=== PATIENT | male | born 1980 | race Caucasian/White ===

== ENCOUNTER 2024-03-11 14:18 | Emergency (ER) | payer BC, SELFPAY ==
[2024-03-11] VITALS (13 sets, daily range): BP systolic 131–162; BP diastolic 78–107; PULSE 62–109; RESP 16–34; TEMP 36.6–37; O2SAT 90–98; BMI 35.9
--- NOTE | 2024-03-11 14:17 | ECG_ITS ---
APPROVED REPORT Exam: Resting ECG HR:99 bpm ECG Measurements Heart Rate 99 AXES [place] 155 P 53 QRSd 93 QRS 33 QT 349 T 14 QTc 405 Conclusion SINUS RHYTHM NORMAL ECG UNCONFIRMED REPORT Electronically signed by : Dewayne Huynh, 03/11/2024 16:13:11
--- NOTE | 2024-03-11 14:49 | ED_ITS ---
<Statement entered by Timoteo Huynh MD - 03/14/24 21:34> I was consulted by the SHER, and we discussed the complexity of the problems being addressed. I approved the treatment and management plan for this patient's care in the emergency department, thus performing a substantive portion of the medical decision making. Timoteo Huynh MD, HAFSA, FACEP Discharge Plan Disposition Patient Disposition: Home, Self-Care Condition: Good Prescriptions Prescriptions: New azithromycin [Zithromax] 250 mg tablet 250 mg PO DAILY 4 Days Qty: 4 0RF Rx Instructions: start on day 2 of therapy amoxicillin-pot clavulanate 875-125 mg tablet 1 tab PO BID 7 Days Qty: 14 0RF Referrals Follow up/Referrals: Provider,MD Louann [Primary Care Provider] - See instructions Clinical Impressions Clinical Impression: Pneumonia Print Language Print Language: Hungarian Discharge ED Provider: Gagan Wheeler General Chief Complaint: Chest Pain Stated Complaint: chest pain Time Seen by Provider: 03/11/24 14:47 Mode of Arrival: Ambulatory Source of Information: Patient Limitations: No Limitations Description of Symptoms (Recalled from ER Triage Doc. by RN): pt c/o sharp, 7/10 L chest pain that radiates to his sternal chest. pt states this has been ongoing since 03/08 but became increasingly worse today. pt reports a productive cough that is red and blood appearing. pt reports drinking wine on 03/07 for new when he choked. He reports he thinks he have have aspirated the wine. pt appears short of air and is tachypnic. History of Present Illness HPI narrative: Patient is a 43-year-old with no past medical history presenting for 2 days of hemoptysis and left-sided chest pain. Patient said that his chest pain started after he vomited multiple times on [place] after drinking red wine. He has had intermittent hemoptysis since then and the chest pain has been fairly constant. Additionally patient said that he has not been able to eat over the last couple days due to having no appetite. Patient said that the hemoptysis gets better as the day goes on and by the end of the day he has no blood in his sputum. Patient has had no fevers, chills and has not taken any medications to help. At this time he is not nauseous, vomiting, abdominal pain or diarrhea. Patient has a family history of blood clots but has never been worked up for a coagulation disorder. Related Data Previous Rx's ?Medication ?Instructions ?Recorded amoxicillin 875 mg-potassium 1 tab PO BID 7 days #14 tabs 03/11/24 clavulanate 125 mg tablet azithromycin 250 mg tablet 250 mg PO DAILY 4 days #4 tabs 03/11/24 (Zithromax) Allergies Allergy/AdvReac Type Severity Reaction Status Date / Time No Known Allergies Allergy Verified 03/11/24 14:[address] [facility] Disclaimer: The information contained in this section may have been updated after the patient was seen, as this information can be updated by other users. Social History (Updated 01/15/22 @ 15:28 by Luisa Garcia) Smoking Status: Current every day smoker second hand exposure: No alcohol intake: never substance use type: denies use current occupational status: employed Travel in the last 8 weeks: None marital status: caffeine: Yes Have you lived/traveled outside [place] in past 30 days?: No Contact w/someone who lives/traveled outside US past 30 days?: No Exposure to someone with infectious disease in past 14 days?: No Do you have a fever (greater than 100.4 F or 38 C)?: No Have you tested positive for COVID-19: No Exposed to someone with COVID-19 in past 14 days?: No Do you have a sore throat?: No Do you have a cough?: No Do you have any weakness?: No Do you have any diarrhea?: No Are you experiencing any unusual bleeding?: No Do you have any muscle aches/pain?: No Do you have any abdominal pain?: No Are you experiencing loss of taste or smell?: No Other Medical History Have you received the Flu Vaccine for this season: No Have you received the Pneumonia Vaccine: No ROS Obtained: Yes All systems reviewed & no additional complaints except as documented Physical Exam General General appearance: alert Eye Eye exam: Present normal appearance ENT ENT exam: Present normal exam, normal oropharynx and mucous membranes moist Neck Neck exam: Present normal inspection Chest Chest inspection: Present normal inspection and other (Tenderness to palpation of left chest wall without obvious crepitus) Respiratory Respiratory exam: Present normal lung sounds bilaterally; Absent respiratory distress, wheezes, stridor or accessory muscle use Cardiovascular Cardiovascular exam: Present tachycardia Abdominal Exam Abdominal exam: Present soft; Absent distention, tenderness or guarding Neurological Exam Neurological exam: Present alert and oriented X3 HEART Score HEART Score HEART Score assessment performed?: Yes History (anamnesis): Slightly suspicious ECG: Normal Age: <45 years Risk factors: No known risk factors Troponin: </= normal limit HEART Score: 0 Critical Care Critical Care Time Critical Care Time: No Medical Decision Making Jon Inquiry Pt receiving controlled substance: No Vital Signs Vital Signs: 03/11/24 14:19 03/11/24 14:20 03/11/24 14:45 Temperature 98.6 F Temperature Source Oral Pulse Rate 97 H 106 H Pulse Rate [Left] 94 H Respiratory Rate 33 H 27 H Blood Pressure 151/92 H Blood Pressure [Right Arm] 162/107 H Blood Pressure Mean [Right Arm] 125 Blood Pressure Source Blood Pressure Source [Right Arm] Automatic Cuff Blood Pressure Position Blood Pressure Position [Right Arm] Sitting 02 Sat by Pulse Oximetry 98 96 90 L Oxygen Delivery Method Room Air 03/11/24 15:00 03/11/24 15:30 03/11/24 16:00 Temperature Temperature Source Pulse Rate 109 H 96 H 97 H Pulse Rate [Left] Respiratory Rate 32 H 21 28 H Blood Pressure 141/87 H 152/96 H 138/84 Blood Pressure [Right Arm] Blood Pressure Mean [Right Arm] Blood Pressure Source Blood Pressure Source [Right Arm] Blood Pressure Position Blood Pressure Position [Right Arm] 02 Sat by Pulse Oximetry 92 L 92 L 93 L Oxygen Delivery Method Room Air Room Air 03/11/24 16:30 03/11/24 17:00 03/11/24 17:30 Temperature Temperature Source Pulse Rate 105 H 105 H 94 H Pulse Rate [Left] Respiratory Rate 34 H 25 H 22 Blood Pressure 131/84 145/92 H 153/88 H Blood Pressure [Right Arm] Blood Pressure Mean [Right Arm] Blood Pressure Source Blood Pressure Source [Right Arm] Blood Pressure Position Blood Pressure Position [Right Arm] 02 Sat by Pulse Oximetry 93 L 95 94 L Oxygen Delivery Method Room Air Room Air Room Air 03/11/24 18:00 03/11/24 18:30 03/11/24 19:00 Temperature Temperature Source Pulse Rate 67 62 Pulse Rate [Left] Respiratory Rate 24 27 H 25 H Blood Pressure 132/78 134/87 149/99 H Blood Pressure [Right Arm] Blood Pressure Mean [Right Arm] Blood Pressure Source Blood Pressure Source [Right Arm] Blood Pressure Position Blood Pressure Position [Right Arm] 02 Sat by Pulse Oximetry 94 L 94 L Oxygen Delivery Method Room Air Room Air 03/11/24 19:26 Temperature 97.9 F Temperature Source Oral Pulse Rate 109 H Pulse Rate [Left] Respiratory Rate 16 Blood Pressure 149/99 H Blood Pressure [Right Arm] Blood Pressure Mean [Right Arm] Blood Pressure Source Automatic Cuff Blood Pressure Source [Right Arm] Blood Pressure Position Supine Blood Pressure Position [Right Arm] 02 Sat by Pulse Oximetry Oxygen Delivery Method Room Air Lab Data Labs: Lab Results 03/11/24 14:20: WBC 26.7 H*, RBC 6.06, Hgb 17.1, Hct 50.9, MCV 84.0, MCH 28.2, MCHC 33.6, RDW 12.5, Plt Count 253, MPV 10.7 H, Neut % (Auto) 84.8 H, Lymph % (Auto) 7.9 L, Bath % (Auto) 5.8, Eos % (Auto) 0.0 L, Baso % (Auto) 0.6, Neut # (Auto) 22.6 H, Lymph # (Auto) 2.1, Bath # (Auto) 1.5 H, Eos # (Auto) 0.0, Baso # (Auto) 0.2, Total Counted 100, Neutrophils % (Manual) 86 H, Lymphocytes % (Manual) 8 L, Monocytes % (Manual) 6, Platelet Estimate Normal, RBC Morphology Normal, PT 12.2, INR 1.10, APTT 31.9 H, Sodium 140, Potassium 4.1, Chloride 98, Carbon Dioxide 27, Anion Gap 19.1 H, BUN 11, Creatinine 1.30 H, Estimated Creat Clear 120, Estimated GFR 61, Est GFR ( Amer) 74, Glucose 170 H, Calcium 9.6, Total Bilirubin 1.6 H, AST 39, ALT 36, Alkaline Phosphatase 116, Troponin I < 0.01, Total Protein 8.9 H, Albumin 4.8, Globulin 4.1 H, Albumin/Globulin Ratio 1.2 03/11/24 14:30: HIV Ag/Ab Combo Qual Negative 03/11/24 15:15: VBG pH 7.39, VBG pCO2 38.2, VBG pO2 32.4, VBG HCO3 22.7 L, VBG Total CO2 23.9, VBG O2 Saturation 69.8, VBG Base Excess -2.2, VBG Lactic Acid 2.4 H 03/11/24 16:03: SARS-CoV-2 (PCR) Not detected, Influenza A Untype (PCR) Not detected, Influenza Type B (PCR) Not detected 03/11/24 14:20 03/11/24 14:20 Response Orders (Tests/Meds): ED MEDICATIONS Discontinued Medications Generic Name Dose Route Start Last Admin Trade Name Freq PRN Reason Stop Dose Admin Hydromorphone HCl 0.5 mg 03/11/24 14:59 03/11/24 15:17 Hydromorphone 4 Mg/Ml Syringe IV 03/11/24 15:00 0.5 mg ONCE ONE Administration Lactated Ringer's 1,000 mls @ 999 mls/hr 03/11/24 14:59 03/11/24 15:17 Lactated Ringer's 1000 Ml Bag IV 03/11/24 15:59 999 mls/hr .Q1H1M ONE Administration Lactated Ringer's 1,000 mls @ 999 mls/hr 03/11/24 16:03 03/11/24 17:02 Lactated Ringer's 1000 Ml Bag IV 03/11/24 17:03 999 mls/hr .Q1H1M ONE Administration Ceftriaxone Sodium 2 gm/ 100 mls @ 200 mls/hr 03/11/24 17:15 03/11/24 17:47 Sodium Chloride IV 03/21/24 17:14 200 mls/hr Q24H ALISTAIR Administration Azithromycin 500 mg/ Sodium 250 mls @ 250 mls/hr 03/11/24 17:15 03/11/24 17:55 Chloride IV 03/21/24 17:14 250 mls/hr Q24H ALISTAIR Administration Iopamidol 70 ml 03/11/24 15:48 03/11/24 15:49 Iopamidol-370 (76%);100ml Bottle IV 03/11/24 15:49 70 ml ONCE ONE Administration Ondansetron HCl 4 mg 03/11/24 14:59 03/11/24 15:18 Ondansetron 4mg/2ml Vial IV 03/11/24 15:00 4 mg ONCE ONE Administration Pantoprazole Sodium 40 mg 03/11/24 14:59 03/11/24 15:18 Pantoprazole 40mg Vial IV 03/11/24 15:00 40 mg ONCE ONE Administration Sodium Chloride 10 ml 03/11/24 14:59 03/11/24 15:18 Sodium Chloride 0.9% 10ml Vial IV 04/10/24 14:58 10 ml NEEDED PRN Administration dilute protonix Sodium Chloride 50 ml 03/11/24 15:48 03/11/24 15:50 0.9 % Sodium Chloride 50 Ml Vial IV 03/11/24 15:49 50 ml ONCE ONE Administration Sodium Chloride 10 ml 03/11/24 15:48 03/11/24 15:50 Sodium Chloride 0.9% 10ml Syr (Rad Only) IV 03/11/24 15:49 10 ml ONCE ONE Administration ORDERS Category Date Time Status CT angio chest PE protocol Stat Cat Scan 03/11/24 14:59 Completed XR chest portable Stat Exams 03/11/24 15:00 Completed Activated Partial Thrombo Time Stat Lab 03/11/24 14:20 Completed Complete Blood Count Auto Diff Stat Lab 03/11/24 14:20 Completed Comprehensive Metabolic Panel Stat Lab 03/11/24 14:20 Completed HIV Combo Stat Lab 03/11/24 14:30 Completed Hep C Ab with Reflex to RNA Stat Lab 03/11/24 14:30 Received Prothrombin Time INR Stat Lab 03/11/24 14:20 Completed Rapid PCR Covid and Flu A/B Stat Lab 03/11/24 16:03 Completed Troponin I Stat Lab 03/11/24 14:20 Completed Blood Culture Stat Micro 03/11/24 16:02 Received Venous Blood Gas Stat RT 03/11/24 15:15 Completed MDM Narrative Medical Decision Narrative: In summary, this 43-year-old male presents to the emergency department today with hemoptysis and chest pain. On initial evaluation patient is mildly tachycardic and uncomfortable but otherwise hemodynamically stable. He is on room air and has reproducible pain of his left chest wall. I have concern for pneumomediastinum or Deysi-Mallory tear causing this chest pain due to it starting after forceful vomiting. Differential diagnosis includes but is not limited to pneumomediastinum, Deysi Mallory tear, pulmonary embolism, pneumonia, bronchitis. Based on these concerns, I ordered labs, chest x-ray, CT. ECG personally interpreted demonstrates normal sinus rhythm, no acute ST elevation, intervals within normal limits. Patient received azithromycin and ceftriaxone for treatment. Labs personally reviewed demonstrate leukocytosis, elevated lactate, mildly elevated creatinine. XR personally interpreted demonstrates right-sided pneumonia. CT imaging personally interpreted demonstrate no pulmonary embolism, concern for right-sided pneumonia. On reassessment patient's heart rate significantly improved, symptoms have improved and he is feeling much better. He is on room air no acute respiratory distress. Due to initial tachycardia, tachypnea and leukocytosis I offered patient admission and patient said that he would like to not be admitted regardless of all of these. I discussed the risk and benefits with him and he was agreeable to IV antibiotics and then starting p.o. antibiotics tomorrow. Patient was given strict return precautions, all questions answered, patient discharged in stable condition.. Of note, social determinants of health include poor health literacy.
--- NOTE | 2024-03-11 14:59 | CT_ITS ---
PROCEDURE INFORMATION: Exam: CTA Chest With Contrast Exam date and time: 03/11/2024 3:49 PM Age: 43 years old Clinical indication: Other: Hemoptysis, chest pain TECHNIQUE: Imaging protocol: Computed tomographic angiography of the chest with contrast. Exam focused on the arteries. 3D rendering (Not supervised by radiologist): MIP and/or 3D reconstructed images were created by the technologist. Radiation optimization: All CT scans at this facility use at least one of these dose optimization techniques: automated exposure control; mA and/or kV adjustment per patient size (includes targeted exams where dose is matched to clinical indication); or iterative reconstruction. Contrast material: ISOVUE 370; Contrast volume: 70 ml; Contrast route: INTRAVENOUS (IV); COMPARISON: CR XR CHEST PORTABLE 03/11/2024 3:33 PM FINDINGS: Pulmonary arteries: No evidence of pulmonary embolus to the segmental level. Aorta: No aneurysm of the aorta. No dissection of the aorta. Lungs: Consolidation in the lingula and right lower lobe may represent multifocal pneumonia.. Pleural spaces: Unremarkable. No pneumothorax. No pleural effusion. Heart: Unremarkable. No cardiomegaly. No pericardial effusion. Mediastinal space: No pneumomediastinum identified. Lymph nodes: Calcified subcarinal nodes and calcified granuloma in the left lower lobe consistent with prior granulomatous disease. Pathologic node along the right paratracheal region 18 x 14 mm. Kidneys: 3.9 cm simple cyst left kidney. . No follow-up imaging recommended . Bones/joints: One cm sclerotic density noted in the left humeral head compatible with bone island (enostosis) in patient without history of neoplastic disease. Nuclear medicine bone scan may be useful for further evaluation if clinically indicated. Soft tissues: Unremarkable. IMPRESSION: 1. No evidence of pulmonary embolus to the segmental level. 2. No aneurysm of the aorta. 3. No dissection of the aorta. 4. Consolidation in the lingula and right lower lobe may represent multifocal pneumonia.. COMMENTS: Consistent with the [employer]'s Incidental Findings Committee white paper (J Am [place] [employer]iol 2018): Any incidental renal lesion less than 1 cm or classified as too small to characterize, or any incidental cystic renal lesion characterized as simple-appearing, is likely benign. No follow-up imaging is recommended for these lesions per consensus recommendations based on imaging criteria.
--- NOTE | 2024-03-11 15:00 | XR_ITS ---
PROCEDURE INFORMATION: Exam: XR Chest Exam date and time: 03/11/2024 3:33 PM Age: 43 years old Clinical indication: Other: Cp, concern for pneumomediastinum TECHNIQUE: Imaging protocol: Radiologic exam of the chest. Views: 1 view. COMPARISON: No relevant prior studies available. FINDINGS: Lungs: Opacity in the lingula and lower lobes may represent pneumonia.. Pleural spaces: Unremarkable. No pleural effusion. No pneumothorax. Heart/Mediastinum: No pneumomediastinum on the CT chest. Bones/joints: Unremarkable. IMPRESSION: 1. Opacity in the lingula and lower lobes may represent pneumonia.. Please refer to the CTA chest 2. No pneumomediastinum on the CT chest.
[2024-03-11 15:17] LABS: Albumin Level 4.8 g/dl (3.5-5.0); Basophils # 0.2 K/mm3 (0-0.2); Basophils % 0.6 % (0.1-2.0); Chloride 98 mmol/L (98-107); Hematocrit 50.9 % (42.0-52.0); Hemoglobin 17.1 g/dL (14.1-18.0); Lymphocytes # 2.1 K/mm3 (0.7-4.5); Lymphocytes % 7.9 % (10-50); Mean Corpuscular HGB Conc 33.6 g/dL (31.8-35.4); Mean Corpuscular Hemoglobin 28.2 pg (27.0-31.2); Mean Platelet Volume 10.7 fl (7.4-10.4); Monocytes # 1.5 K/mm3 (0.1-1.0); Monocytes % 5.8 % (1.7-9.3); Neutrophils # 22.6 K/mm3 (1.8-7.8); Neutrophils % 84.8 % (37.0-80.0); Platelet Count 253 K/mm3 (142-424); Potassium 4.1 mmoL/L (3.5-5.1); Red Blood Count 6.06 M/mm3 (4.60-6.20); Red Cell Distribution Width 12.5 % (11.5-17.5); Sodium 140 mmol/L (136-145); White Blood Count 26.7 K/mm3 (4.8-10.8)
[2024-03-11] MEDS: LACTATED RINGERS 1000ML 1,000 ML 999 ML IV ×2 (15:17→17:02)
[2024-03-11] MEDS: PANTOPRAZOLE 40MG VIAL 40 MG IV (15:18)
[2024-03-11] MEDS: SODIUM CHLORIDE 0.9% 10ML VIAL 10 ML IV (15:18)
[2024-03-11] MEDS: ONDANSETRON 4MG/2ML VIAL 4 MG IV (15:18)
[2024-03-11 15:20] LABS: Alanine Aminotransferase 36 U/L (12-78); Albumin/Globulin Ratio 1.2 (1.1-1.8); Alkaline Phosphatase 116 U/L (38-126); Anion Gap 19.1 mEq/L (5-15); Aspartate Amino Transferase 39 U/L (17-59); Bilirubin,Total 1.6 mg/dl (0.2-1.3); Blood Urea Nitrogen 11 mg/dl (9-20); Carbon Dioxide 27 mmol/L (22.0-30.0); Creatinine Clearance Estimated 120 mL/min (50-200); Estimated Glomerular Filt Rate 61 ml/min (>60); GFR (African American) 74 ML/MIN (>60); Globulin 4.1 g/dL (1.3-3.2); Glucose 170 mg/dl (74-100); Total Protein,Serum 8.9 g/dl (6.3-8.2)
[2024-03-11 15:21] LABS: Calcium 9.6 mg/dl (8.4-10.2)
[2024-03-11 15:29] LABS: MANUAL DIFFERENTIAL MANUAL DIFFERENTIAL (MANUAL DIFF)
[2024-03-11 15:36] LABS: VBG Base Excess -2.2 mmol/L (-2.4-2.3); VBG HCO3 22.7 mmol/L (23-30); VBG Oxygen Saturation 69.8 % (50-70); VBG PCO2 38.2 mmol/L (35-51); VBG PH 7.39 mmol/L (7.31-7.41); VBG PO2 32.4 mmol/L (28-40); VBG Total CO2 23.9 mmol/L (23-27)
[2024-03-11 15:37] LABS: Lactate Venous 2.4 mmol/L (0.4-2.0)
[2024-03-11 15:39] LABS: Troponin I < 0.01 ng/ml (0.00-0.034)
[2024-03-11] MEDS: IOPAMIDOL-370 (76%);100ML BOTTLE 70 ML IV (15:49)
[2024-03-11] MEDS: 0.9 % SODIUM CHLORIDE 50 ML VIAL IV (15:50)
[2024-03-11] MEDS: SODIUM CHLORIDE 0.9% 10ML SYR (RAD ONLY) 10 ML IV (15:50)
[2024-03-11 16:09] LABS: Coronavirus 19, PCR Not Detected (NotDetected); Influenza A, PCR Not Detected (NotDetected); Influenza B, PCR Not Detected (NotDetected)
[2024-03-11 16:37] LABS: HIV Combo NEGATIVE (Negative)
[2024-03-11 17:04] LABS: Lymphocytes % 8 % (10-50); Monocytes % 6 % (2-9); Neutrophils % 86 % (42-76); Platelet Estimate Normal; RBC Morphology Normal; Total Cells Counted 100
[2024-03-11 17:38] LABS: Activated Partial Thrombo Time 31.9 seconds (22.8-30.6); Prothrombin Time 12.2 seconds (10.1-12.5)
[2024-03-11] MEDS: CEFTRIAXONE SODIUM 2 GM in 0.9 % SODIUM CHLORIDE 100 ML IV (17:47)
[2024-03-11] MEDS: AZITHROMYCIN 500 MG in 0.9 % SODIUM CHLORIDE 250 ML 250 MG IV (17:55)
[2024-03-11 19:38] LABS: Reflex Lactic Add Lactic Reflex
[2024-03-15 05:10] LABS: HCV Ab Non Reactive (Non Reactive)
== END 2024-03-11 19:05 | disposition home or self-care (01) ==
PROVIDERS: Student in an Organized Health Care Education/Training Program; Emergency Provider Student in an Organized Health Care Education/Training Program
DX: J18.9 Pneumonia, unspecified organism (principal); R07.9 Chest pain, unspecified; R05.8 Other specified cough; R06.82 Tachypnea, not elsewhere classified; R04.2 Hemoptysis
CPT/HCPCS: 71045; 71275; 80053; 82803; 84484; 85007; 85025; 85027; 85610; 85730; 86803; 87040; 87389; 87636; 93005; 96361; 96365; 96367; 96374; 96375; 99285; J0456; J0696; J1171; J2405; J7050; J7120; Q9967